=== PATIENT | female | born 1975 | race African-American/Black ===

== ENCOUNTER 2023-06-15 23:38 | Emergency (ER) | payer OTHER ==
[~2023-06-15] VITALS: Ht 149.9 cm; Wt 94.8 kg
[2023-06-16] MEDS ORDERED: AMLODIPINE BESY10 MG PO (00:01)
[2023-06-16] MEDS ORDERED: LISINOPRIL40 MG PO (00:01)
[2023-06-16] MEDS ORDERED: KETO10TA2 PO (02:33)
== END 2023-06-16 04:00 | disposition home or self-care (01) ==
LOC: ER 23:38
DX: S86.012A Strain of left Achilles tendon, initial encounter (principal); X58.XXXA Exposure to other specified factors, initial encounter; Y93.39 Activity, other involving climbing, rappelling and jumping off; Y92.89 Other specified places as the place of occurrence of the external cause; Y99.9 Unspecified external cause status; M25.572 Pain in left ankle and joints of left foot
CPT/HCPCS: 29515; 73590; 73610; 96372; 99284; J1885